=== PATIENT | female | born 1955 | race Two or more races ===

== ENCOUNTER 2020-02-01 13:24 | Outpatient (CLI) | payer OTHER ==
[~2020-02-01 13:24] MED LIST: CIPRO500 MG PO; METFORMIN HCL500 MG PO; NAPR500T14 PO; PEPCID40 MG PO; PYRIDIUM200 MG PO; ZOFRAN4 MG PO
== END 2020-02-01 13:27 | disposition home or self-care (01) ==
LOC: NUCLEAR 13:24
PROVIDERS: ATTEND Internal Medicine Cardiovascular Disease
DX: M81.0 Age-related osteoporosis without current pathological fracture (principal); E55.9 Vitamin D deficiency, unspecified

== ENCOUNTER 2020-02-01 14:28 | Outpatient (CLI) | payer OTHER | END 2020-02-01 14:50 | disposition home or self-care (01) | LOC: RAD 14:28 | PROVIDERS: ATTEND Internal Medicine Cardiovascular Disease | DX: Z12.31 Encounter for screening mammogram for malignant neoplasm of breast (principal); N64.59 Other signs and symptoms in breast; G44.89 Other headache syndrome ==

== ENCOUNTER → 2020-10-27 | Emergency (ER) | payer OTHER ==
[~2020-10-27] VITALS: Ht 152.4 cm; Wt 63.5 kg
== END | disposition home or self-care (01) ==
LOC: ER 06:04
DX: R10.31 Right lower quadrant pain (principal); R11.0 Nausea

== ENCOUNTER 2021-04-27 08:23 | Outpatient (CLI) | payer OTHER | END 2021-04-27 08:31 | disposition home or self-care (01) | LOC: SONOGRAMA 08:23 | PROVIDERS: ATTEND Internal Medicine Cardiovascular Disease | DX: R10.2 Pelvic and perineal pain (principal); R10.84 Generalized abdominal pain ==

== ENCOUNTER 2022-04-26 09:17 | Outpatient (CLI) | payer OTHER | END 2022-04-26 09:25 | disposition home or self-care (01) | LOC: MAMO-SONO 09:17 | PROVIDERS: ATTEND Specialist | DX: Z12.31 Encounter for screening mammogram for malignant neoplasm of breast (principal); N63.0 Unspecified lump in unspecified breast ==

== ENCOUNTER 2022-09-08 09:27 | Outpatient (CLI) | payer OTHER | END 2022-09-08 09:29 | disposition home or self-care (01) | LOC: EKG 09:27 | PROVIDERS: ATTEND Internal Medicine Cardiovascular Disease | DX: I10 Essential (primary) hypertension (principal) ==

== ENCOUNTER 2022-09-08 09:54 | Outpatient (CLI) | payer OTHER | END 2022-09-08 10:05 | disposition home or self-care (01) | LOC: RAD 09:54 | PROVIDERS: ATTEND Internal Medicine Cardiovascular Disease | DX: J44.9 Chronic obstructive pulmonary disease, unspecified (principal) ==

== ENCOUNTER 2023-07-12 11:56 | Emergency (ER) | payer OTHER ==
[~2023-07-12] VITALS: Ht 154.9 cm; Wt 61.2 kg
[2023-07-12] MEDS ORDERED: ONDANSETRON HCL 2 MG/ML VIAL IV ONE (16:00)
[2023-07-12] MEDS ORDERED: LACTOBACILLUS ACIDOPHILUS 1 CAP CAP PO ONE (16:00)
[2023-07-12] MEDS ORDERED: MECLIZINE HCL 25 MG TABLET PO ONE (16:00)
[2023-07-12] MEDS ORDERED: FAMOTIDINE/PF 20 MG/2 ML VIAL IV ONE (16:00)
[2023-07-12] MEDS ORDERED: 0.9 % SODIUM CHLORIDE 500 ML IV ONE (16:00)
[2023-07-12 16:27] LABS: HEMATOCRIT 39.4 % (36.0-45.00); HEMOGLOBIN 13.1 g/dL (12.0-15.00); MEAN CELL VOLUME 87.8 fL (80.00-100.00); MEAN CORPUSCULAR HEMOGLOBIN 29.2 pg (27.00-32.0); MEAN CORPUSCULAR HGB CONC 33.3 g/dl (32.0-36.0); PLATELET COUNT 209 K/uL (150-450); RED BLOOD COUNT 4.48 M/uL (4.00-6.00); RED CELL DISTRIBUTION WIDTH 14.1 % (11.5-14.5)
[2023-07-12 17:15] LABS: CALCIUM 9.6 mg/dL (8.5-10.1); CREATININE SERUM 0.82 mg/dL (0.55-1.02); GFR 69.12; POTASSIUM 4.14 mEq/L (3.5-5.1)
[2023-07-12 19:02] LABS: URINE APPEARANCE Clear; URINE BILIRRUBIN Negative (NEGATIVE); URINE BLOOD Small; URINE COLOR Yellow; URINE GLUCOSE Negative (NEGATIVE); URINE LEUKOCYTE Trace; URINE NITRATE Negative; URINE PROTEIN Negative (NEGATIVE); URINE UROBILINOGEN 0.2 E.U./dl
[2023-07-12 19:05] LABS: URINE BACTERIA 21.4 uL (0.0-1933); URINE EPITHELIAL CELLS 3.3 uL (0.0-38.8); URINE WBC 4.3 uL (0.0-23.2)
[2023-07-12] MEDS ORDERED: ONDANSETRON HCL4 MG PO (20:45)
[2023-07-12] MEDS ORDERED: INTESTINEX680 M1 PO (20:45)
== END 2023-07-12 21:23 ==
LOC: ER 11:56
PROVIDERS: Nurse Practitioner Family
DX: R42 Dizziness and giddiness (principal); J32.8 Other chronic sinusitis; Z88.0 Allergy status to penicillin; H91.8X2 Other specified hearing loss, left ear; E11.9 Type 2 diabetes mellitus without complications; Z79.84 Long term (current) use of oral hypoglycemic drugs
CPT/HCPCS: 36415; 70450; 93005; 96365; 96366; 99284; J2405; J3490; J7042

== ENCOUNTER 2023-12-13 12:42 | Emergency (ER) | payer OTHER ==
[~2023-12-13] VITALS: Ht 152.4 cm; Wt 63.5 kg
[~2023-12-13 12:42] MED LIST changes: +INTESTINEX680 M1 PO; +ONDANSETRON HCL4 MG PO
[2023-12-13] MEDS ORDERED: METFORMIN HCL500 M4 PO (13:29)
[2023-12-13] MEDS ORDERED: PANTOPRAZOLE SO40 MG PO (13:29)
[2023-12-13] MEDS ORDERED: PEPCID AC20 MG (13:30)
[2023-12-13] MEDS ORDERED: FLONASE16 GM NS (13:30)
[2023-12-13] MEDS ORDERED: 0.9 % SODIUM CHLORIDE 1,000 ML IV STA (14:51)
[2023-12-13] MEDS ORDERED: FAMOtidine 10 MG/ML (4ML VIAL) IV SCH (15:00)
[2023-12-13] MEDS ORDERED: BARIUM SULFATE 450 ML ORAL.SUSP PO ONE (15:09)
[2023-12-13] MEDS ORDERED: FAMOtidine 200mg/20ml VIAL ONE (15:11)
[2023-12-13 15:52] LABS: HEMATOCRIT 39.9 % (36.0-45.00); HEMOGLOBIN 13.5 g/dL (12.0-15.00); MEAN CELL VOLUME 88.9 fL (80.00-100.00); MEAN CORPUSCULAR HEMOGLOBIN 30.1 pg (27.00-32.0); MEAN CORPUSCULAR HGB CONC 33.9 g/dl (32.0-36.0); PLATELET COUNT 207 K/uL (150-450); RED BLOOD COUNT 4.48 M/uL (4.00-6.00); RED CELL DISTRIBUTION WIDTH 13.2 % (11.5-14.5)
[2023-12-13 15:55] LABS: ALBUMIN 4.2 gm/dL (3.4-5.0); BILIRUBIN TOTAL 0.59 mg/dL (0.3-1.2); BILIRUBIN,CONJUGATED 0.14 mg/dL (0.0-0.2); BILIRUBIN,UNCONJUGATED 0.45 mg/dL (0.0-0.6); CALCIUM 9.3 mg/dL (8.5-10.1); CREATININE SERUM 0.97 mg/dL (0.55-1.02); GFR 56.94; POTASSIUM 4.13 mEq/L (3.5-5.1)
== END 2023-12-13 22:59 | disposition home or self-care (01) ==
LOC: ER 12:43
PROVIDERS: General Practice
DX: K52.9 Noninfective gastroenteritis and colitis, unspecified (principal); I10 Essential (primary) hypertension; Z88.0 Allergy status to penicillin
CPT/HCPCS: 36415; 74177; 93005; 96365; 96366; 99284; J3490; J7030; Q9965

== ENCOUNTER 2024-05-29 07:42 | Outpatient (CLI) | payer OTHER ==
[~2024-05-29 07:42] MED LIST changes: +FLONASE16 GM NS; +METFORMIN HCL500 M4 PO; +PANTOPRAZOLE SO40 MG PO; +PEPCID AC20 MG
== END 2024-05-29 07:46 | disposition home or self-care (01) ==
LOC: MAMO-SONO 07:42
PROVIDERS: ATTEND Specialist
DX: N63.20 Unspecified lump in the left breast, unspecified quadrant (principal); N63.10 Unspecified lump in the right breast, unspecified quadrant; Z12.31 Encounter for screening mammogram for malignant neoplasm of breast

== ENCOUNTER 2024-06-08 12:13 | Outpatient (CLI) | payer OTHER | END 2024-06-08 12:15 | disposition home or self-care (01) | LOC: SONOGRAMA 12:13 | PROVIDERS: ATTEND Surgery | DX: D24.1 Benign neoplasm of right breast (principal); N60.11 Diffuse cystic mastopathy of right breast; N60.12 Diffuse cystic mastopathy of left breast ==